=== PATIENT | male | born 1995 | race Hispanic/Latino ===

== ENCOUNTER 2017-10-12 09:31 | Emergency (ER) | payer SELFPAY ==
--- NOTE | 2017-10-12 10:23 | EDPHYS ---
Physician Documentation [facility] Name: Daniel Gonzalez Age: 22 yrs Sex: Male : 1995 Arrival Date: 10/12/2017 Time: 09:34 Bed 15 Private MD: ED Physician Eduardo Fields HPI: 10/12 10:15 This 22 yrs old Male presents to ER via Ambulatory with complaints of ITCHING kav ALL OVER. 10:15 Onset: The symptoms/episode began/occurred acutely, 2 week(s) ago. Associated signs and kav symptoms: Pertinent positives: itching diffusely over entire body that becomes worse at night. Modifying factors: The patient symptoms are alleviated by permethrin topical x 2 doses. The patient has experienced similar episodes in the past, several times, and the symptoms today are exactly the same, to when the patient was apparently diagnosed with Scabies. The patient has been recently seen by a physician: the patient's primary care provider. Patient presented with diffuse linear rash over entire body except for the scalp that is itching and symptoms of itching are worse at night time. He reports being seen by his PCP and prescribed Permethrin 5 % cream x 2 doses. He reports that he did both doses and that he still has the same symptoms. He also reports that his girlfriend has the same symptoms and has also been treated for Scabies with Permethrin % % cream and has not improved. He reports that he has not bagged his bedding, linens, clothes in a trash bag and set in a heated area/outside in sun. He request another solution besides the Permethrin 5% Cream.. Historical: - Allergies: 09:48 NKA; iw - Home Meds: 09:48 None [Active]; iw - PMHx: 09:48 None; iw - PSHx: 09:48 None; iw - Immunization history:: Adult Immunizations not up to date. - Ebola Screening: : Patient negative for fever greater than or equal to 101.5 degrees Fahrenheit, and additional compatible Ebola Virus Disease symptoms Patient denies exposure to infectious person Patient denies travel to an Ebola-affected area in the 21 days before illness onset No symptoms or risks identified at this time. - Social history:: Smoking status: Patient/guardian denies using tobacco, Patient uses alcohol, occasionally. - Family history:: not pertinent. - Hospitalizations: : No recent hospitalization is reported. ROS: 10:20 Constitutional: Negative for fever, chills, and weight loss, Eyes: Negative for injury, kav pain, redness, and discharge, ENT: Negative for injury, pain, and discharge, Neck: Negative for injury, pain, and swelling, Cardiovascular: Negative for chest pain, palpitations, and edema, Respiratory: Negative for shortness of breath, cough, wheezing, and pleuritic chest pain, Abdomen/GI: Negative for abdominal pain, nausea, vomiting, diarrhea, and constipation, Back: Negative for injury and pain, : Negative for injury, bleeding, discharge, and swelling, MS/Extremity: Negative for injury and deformity, Neuro: Negative for headache, weakness, numbness, tingling, and seizure, Psych: Negative for depression, anxiety, suicide ideation, homicidal ideation, and hallucinations, Allergy/Immunology: Negative for hives, rash, and allergies, Endocrine: Negative for neck swelling, polydipsia, polyuria, polyphagia, and marked weight changes, Hematologic/Lymphatic: Negative for swollen nodes, abnormal bleeding, and unusual bruising. 10:20 Skin: Positive for rash. 10:20 Skin: Positive for diffusely. kav Exam: 10:20 Constitutional: This is a well developed, well nourished patient who is awake, alert, kav and in no acute distress. Head/Face: Normocephalic, atraumatic. Eyes: Pupils equal round and reactive to light, extra-ocular motions intact. Lids and lashes normal. Conjunctiva and sclera are non-icteric and not injected. Cornea within normal limits. Periorbital areas with no swelling, redness, or edema. ENT: Nares patent. No nasal discharge, no septal abnormalities noted. Tympanic membranes are normal and external auditory canals are clear. Oropharynx with no redness, swelling, or masses, exudates, or evidence of obstruction, uvula midline. Mucous membranes moist. Neck: Trachea midline, no thyromegaly or masses palpated, and no cervical lymphadenopathy. Supple, full range of motion without nuchal rigidity, or vertebral point tenderness. No Meningismus. Chest/axilla: Normal chest wall appearance and motion. Nontender with no deformity. No lesions are appreciated. Cardiovascular: Regular rate and rhythm with a normal S1 and S2. No gallops, murmurs, or rubs. Normal PMI, no JVD. No pulse deficits. Respiratory: Lungs have equal breath sounds bilaterally, clear to auscultation and percussion. No rales, rhonchi or wheezes noted. No increased work of breathing, no retractions or nasal flaring. Abdomen/GI: Soft, non-tender, with normal bowel sounds. No distension or tympany. No guarding or rebound. No evidence of tenderness throughout. Back: No spinal tenderness. No costovertebral tenderness. Full range of motion. MS/ Extremity: Pulses equal, no cyanosis. Neurovascular intact. Full, normal range of motion. Neuro: Awake and alert, GCS 15, oriented to person, place, time, and situation. Cranial nerves II-XII grossly intact. Motor strength 5/5 in all extremities. Sensory grossly intact. Cerebellar exam normal. Normal gait. Psych: Awake, alert, with orientation to person, place and time. Behavior, mood, and affect are within normal limits. 10:20 Skin: rash a moderate rash is noted, rash can be described as linear, urticarial, scabies, and is diffusely located. Vital Signs: 09:51 BP 120 / 80; Pulse 82; Resp 18; Temp 98.1(O); Pulse Ox 96% on R/A; Weight 74.84 kg; Height 6 ft. 0 in. (182.88 cm); Pain 0/10; 11:01 BP 108 / 64; Pulse 80; Resp 18; Pulse Ox 100% on R/A; 09:51 Body Mass Index 22.38 (74.84 kg, 182.88 cm) MDM: 09:50 Medical screening is not applicable. ka 10:20 Data reviewed: vital signs, nurses notes. [facility] Administered Medications: 10:53 Drug: Kenalog 40 mg Route: IM; Site: right deltoid; 10:53 Follow up: Response: No adverse reaction Disposition: 11:46 Co-signature as Attending Physician, Eduardo Fields MD I agree with the assessment and kdr plan of care. Disposition: 10/12/17 10:23 Discharged to Home. Impression: Scabies. - Condition is Stable. - Prescriptions for ivermectin 3 mg Oral tablet - take 4 tablet by ORAL route as directed x1 dose; 4 tablet. - Medication Reconciliation Form, Thank You Letter, Antibiotic Education, Prescription Opioid Use form. - Follow up: Private Physician; When: 2 - 3 days; Reason: Recheck today's complaints, Continuance of care, Re-evaluation by your physician. - Problem is an ongoing problem. - Symptoms have improved. 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 Impression: Scabies. Condition is Stable. hj Forms are Medication Reconciliation Form, Thank You Letter, Antibiotic Education, Prescription Opioid Use. Follow up: Private Physician; When: 2 - 3 days; Reason: Recheck today's complaints, Continuance of care, Re-evaluation by your physician. Problem is an ongoing problem. Symptoms have improved. zoraida
--- NOTE | 2017-10-12 10:23 | ER ---
Nurse's Notes [facility] Name: Daniel Gonzalez Age: 22 yrs Sex: Male : 1995 Arrival Date: 10/12/2017 Time: 09:34 Bed 15 Private MD: Diagnosis: Scabies Presentation: 10/12 09:46 Presenting complaint: Patient states: has had itching all over body X 1 month, pt iw states roommate was treated for same symptoms by her doctor and was given permethrin cream. Transition of care: patient was not received from another setting of care. Onset of symptoms was August 2017. Risk Assessment: Do you want to hurt yourself or someone else? Patient reports no desire to harm self or others. Initial Sepsis Screen: Does the patient meet any 2 criteria? No. Patient's initial sepsis screen is negative. Does the patient have a suspected source of infection? No. Patient's initial sepsis screen is negative. Care prior to arrival: None. 09:46 Method Of Arrival: Ambulatory iw 09:46 Acuity: JESSE 5 iw Historical: - Allergies: 09:48 NKA; iw - Home Meds: 09:48 None [Active]; iw - PMHx: 09:48 None; iw - PSHx: 09:48 None; iw - Immunization history:: Adult Immunizations not up to date. - Ebola Screening: : Patient negative for fever greater than or equal to 101.5 degrees Fahrenheit, and additional compatible Ebola Virus Disease symptoms Patient denies exposure to infectious person Patient denies travel to an Ebola-affected area in the 21 days before illness onset No symptoms or risks identified at this time. - Social history:: Smoking status: Patient/guardian denies using tobacco, Patient uses alcohol, occasionally. - Family history:: not pertinent. - Hospitalizations: : No recent hospitalization is reported. Screenin:50 Abuse screen: Denies threats or abuse. Denies injuries from another. Nutritional hj screening: No deficits noted. Tuberculosis screening: No symptoms or risk factors identified. Fall Risk None identified. Assessment: 09:49 General: Appears in no apparent distress. uncomfortable, Behavior is calm, cooperative, hj appropriate for age. Pain: Denies pain. Neuro: Level of Consciousness is awake, alert, obeys commands, Oriented to person, place, time, situation, Appropriate for age. Cardiovascular: Capillary refill < 3 seconds Patient's skin is warm and dry. Respiratory: Airway is patent Respiratory effort is even, unlabored, Respiratory pattern is regular, symmetrical. GI: No signs and/or symptoms were reported involving the gastrointestinal system. : No signs and/or symptoms were reported regarding the genitourinary system. EENT: No signs and/or symptoms were reported regarding the EENT system. Derm: Rash noted that is Reports itching. Musculoskeletal: No signs and/or symptoms reported regarding the musculoskeletal system. Vital Signs: 09:51 BP 120 / 80; Pulse 82; Resp 18; Temp 98.1(O); Pulse Ox 96% on R/A; Weight 74.84 kg; hj Height 6 ft. 0 in. (182.88 cm); Pain 0/10; 11:01 BP 108 / 64; Pulse 80; Resp 18; Pulse Ox 100% on R/A; hj 09:51 Body Mass Index 22.38 (74.84 kg, 182.88 cm) ED Course: 09:34 Patient arrived in ED. rg4 09:42 Cornelio Collins, MIKE is Primary Nurse. hj 09:48 Triage completed. iw 09:50 [facility] kav 09:50 Eduardo Fields MD is Attending Physician. kav 09:50 Arm band placed on right wrist. hj 09:50 Patient has correct armband on for positive identification. Bed in low position. Call hj light in reach. Side rails up X 1. 11:01 No provider procedures requiring assistance completed. Patient did not have IV access hj during this emergency room visit. Administered Medications: 10:53 Drug: Kenalog 40 mg Route: IM; Site: right deltoid; 10:53 Follow up: Response: No adverse reaction Outcome: 10:23 Discharge ordered by . kav 11:01 Discharged to home ambulatory. hj 11:01 Condition: stable 11:01 Discharge instructions given to patient, Instructed on discharge instructions, follow up and referral plans. medication usage, Demonstrated understanding of instructions, follow-up care, medications, Prescriptions given X 1. 11:01 Patient left the ED. Signatures: Tara Canales FNP FNP kav Williams, Irene, RN RN Dennis, Cornelio, RN RN hj Navdeep, Romelia rg4
[2017-10-12] MEDS ORDERED: TRIAMCINOLONE ACETON 40 MG/ML VIAL ONE (10:52)
== END 2017-10-12 11:01 | disposition home or self-care (01) ==
LOC: ER 09:31
DX: B86 Scabies (principal)
CPT/HCPCS: 96372; 99283; J3301